=== PATIENT | male | born 1985 | race Caucasian/White ===

== ENCOUNTER 2018-08-03 11:27 | Emergency (ER) | payer SELFPAY ==
[~2018-08-03] VITALS: Ht 180.3 cm; Wt 88.0 kg
[2018-08-03 11:28] VITALS: BP 170/121
[2018-08-03] MEDS ORDERED: DIPH,PERTUSS(ACELL),TET VAC/PF 0.5 ML IM-VACC ONE ×2 (11:43→12:00)
[2018-08-03] MEDS ORDERED: BACITRACIN ZINC OINT 500U/GM, 0.9 GM ONE (11:55)
--- NOTE | 2018-08-03 12:15 | NUR ---
Patient/Caregiver given discharge instructions and they have confirmed that they understand the instructions. Patient ambulatory with steady gait.
== END 2018-08-03 12:17 | disposition home or self-care (01) ==
LOC: ED 12:15
DX: S41.151A Open bite of right upper arm, initial encounter (principal); W54.0XXA Bitten by dog, initial encounter; Y93.89 Activity, other specified; Y92.009 Unspecified place in unspecified non-institutional (private) residence as the place of occurrence of the external cause; Y99.8 Other external cause status
CPT/HCPCS: 90471; 90715; 99283